=== PATIENT | female | born 1970 | race Caucasian/White ===

== ENCOUNTER 2024-05-05 09:47 | Emergency (ER) | payer BC, SELFPAY ==
[2024-05-05 09:58] VITALS: BP 140/82
[2024-05-05] MEDS: ADACEL 0.5 ML IM (12:48)
[2024-05-05] MEDS: LET TOPICAL ANESTHETIC GEL 6 ML TOPICAL (12:48)
--- NOTE | 2024-05-05 16:24 | ED.SKININJ ---
HPI-Injury
General
Chief Complaint: Skin Surface Trauma
Source: patient
Exam Limitations: none
Time Seen by Provider: 05/05/24 10:52
Nursing documentation reviewed up to this point in time: agreed with
History of Present Illness-Injury
Initial Injury comments:
53 yo female using mandolin at home within past hour, sliced the pads of thumb, middle and ring fingers.
Past History
Past History
ED Past Medical History: None
ED Past Surgical History: Orthopedic
Social History
Tobacco: Non-smoker
Alcohol: Occasional
Personal:
Living: with family
Review of Systems
Review of Systems
Allergies reviewed?: Yes
All Other Systems: ROS reviewed and negative except as documented in HPI and ROS
Skin: Reports other (skin avulsion finger pads of thumb, middle and ring fingers)
Phy Exam
Physical Exam
Physical Exam:
PHYSICAL EXAMINATION:
General: no apparent distress, not acutely ill
Neuro: alert and oriented.
Psychiatric: well kept. interactive and cooperative
Musculoskeletal: Moves with ease
Skin: Warm, pink. 1 cm round avulsion of pads of R thumb, middle and ring finger, constant oozing of blood
Course
Orders/Labs/Results
Orders:
Orders
05/05/24 11:48
Lidocaine/Epinephrine/Tetracai [Let Topical Anesthetic Gel] 9 ml .ROUTE .STK-MED ONE
05/05/24 11:56
Lidocaine/Epinephrine/Tetracai [Let Topical Anesthetic Gel] 6 ml TOPICAL NOW STA
Tetanus/Diphth/Acelpertussis [Adacel] 0.5 ml IM .ONCE ONE
Vital Signs
Initial and Last Documented VS:
Initial Vital Signs
Temp Pulse Resp BP Pulse Ox
99.0 F 88 16 140/82 99
05/05/24 09:58 05/05/24 09:58 05/05/24 09:58 05/05/24 09:58 05/05/24 09:58
Last Documented Vital Signs
Temp Pulse Resp BP Pulse Ox
99.0 F 88 16 140/82 99
05/05/24 09:58 05/05/24 09:58 05/05/24 09:58 05/05/24 09:58 05/05/24 09:58
MDM/Problems Addressed
MDM/Problems Addressed:
53 yo female using mandolin at home within past hour, sliced the pads of thumb, middle and ring fingers.
Unsure of last dT
Tdap updated.
Fingerpads placed in LET solution, after adequate numbing, washed at sink with soap and water, bleeding has slowed to minor ooze.
Gelfoam, nonstick and tube gauze dressing applied to each finger with good hemostasis.
Aluminum finger tip splints given to her to use when dressings remove
*Critical Care Note
Total Time (30-74mins, 75-104mins- exclusive of procedures): Not Applicable
ED Attending Note
-
Portions of this chart may have been created with voice recognition software.� Occasional wrong word or��sound alike� substitutions may have occurred due to the inherent limitations of voice recognition software.
Discharge Plan
Departure
Patient Disposition: Home (Routine Discharge)
Date of Disposition: 05/05/24
Time of Disposition: 13:07
Patient with high blood pressure during this ER visit?: No
Condition: Good
Discharge Problem:
Avulsion of skin of middle finger, skin avulsion ring finger, Avulsion of skin of right thumb
Instructions: Wound Care (DC)
Referrals:
Geovanna Marinelli CRNP [Family Provider] -
Activity Restrictions/Additional Instructions:
As we discussed, remove the dressings in 2 days. Then wash the wounds daily, apply antibiotic ointment and band aids. Apply the aluminum fingertip splints as needed for protection.
Interventions
Interventions:
*Risk Screen - Suicide Last Done: 05/05/24 09:58
*Neglect/Abuse Screening Last Done: 05/05/24 09:58
ED- Fall Risk Assessment Last Done: 05/05/24 12:02
*ED COVID-19 Vaccine History Last Done: 05/05/24 09:58
*Nursing Disposition Last Done: 05/05/24 13:16
ED-Skin Assessment Last Done: 05/05/24 11:57
Discharge Date and Time
Discharge Date/Time: 05/05/24 13:16
Print Language: PERUVIAN
== END 2024-05-05 13:16 | disposition home or self-care (01) ==
LOC: EMR 09:47
PROVIDERS: EMERGENCY PHYSICIAN Emergency Medicine; FAMILY PHYSICIAN Family Medicine
DX: S61.001A Unspecified open wound of right thumb without damage to nail, initial encounter (principal); S61.202A Unspecified open wound of right middle finger without damage to nail, initial encounter; S61.204A Unspecified open wound of right ring finger without damage to nail, initial encounter; W27.4XXA Contact with kitchen utensil, initial encounter; Z23 Encounter for immunization
CPT/HCPCS: 99282; 90471; 90715